=== PATIENT | male | born 1960 | race Caucasian/White ===

== ENCOUNTER 2017-07-29 06:26 | Emergency (ER) | payer MEDICAID, SELFPAY ==
[~2017-07-29] VITALS: Ht 185.4 cm; Wt 99.0 kg
[2017-07-29 08:44] VITALS: BP 145/109
== END 2017-07-29 08:46 | disposition home or self-care (01) ==
LOC: ED 06:47
DX: S83.014A Lateral dislocation of right patella, initial encounter (principal); I10 Essential (primary) hypertension; X50.1XXA Overexertion from prolonged static or awkward postures, initial encounter; Y93.01 Activity, walking, marching and hiking; Y92.89 Other specified places as the place of occurrence of the external cause; Y99.8 Other external cause status; Z72.89 Other problems related to lifestyle
CPT/HCPCS: 29505; 99284

== ENCOUNTER 2021-02-06 01:29 | Emergency (ER) | payer MEDICAID ==
[~2021-02-06] VITALS: Ht 185.4 cm; Wt 138.2 kg
--- NOTE | 2021-02-06 01:50 | NUR ---
PT C/O OF SOB SINCE 3 DAYS AGO AND HAS CHEST PRESSURE AND TIGHTNESS. PT STATES HE HAS PAIN IN BACK UNDER HIS RIGHT SHOULDER BLADE. PT STATES PAIN RADIATES TO RIGHT ARM AND ELBOW PT REPORTS GOTTEN WORSE SINCE SMOKE. ATTACHED TO CARD/SP02/BP MONITORS. HR ELEVATED. BED IN LOW, RAILS ENGAGED, CALL LIGHT ON LAP.
[2021-02-06] MEDS ORDERED: ALBUTEROL/IPRATROPIUM 2.5MG/0.5MG, 3 ML NEB ONE (02:30)
[2021-02-06 02:45] LABS: BASOPHILS % (AUTO) 1 % (0-1); EOSINOPHILS % (AUTO) 1 % (1-7); LYMPHOCYTES % (AUTO) 24 % (22-44); MEAN CORPUSCULAR HGB CONC 34.7 g/dL (33.2-36.2); MEAN PLATELET VOLUME 7.7 fL (7.4-10.4); MONOCYTES % (AUTO) 10 % (2-9); NEUTROPHILS % (AUTO) 64 % (42-75); PLATELET COUNT 252 x10^3/uL (130-400); RED BLOOD COUNT 5.48 x10^6/uL (4.38-5.82); RED CELL DISTRIBUTION WIDTH 14.7 % (9.4-14.8)
[2021-02-06 02:53] LABS: ALANINE AMINOTRANSFERASE 43 U/L (12-78); ANION GAP 8 mmol/L (5-15); CALCIUM 8.8 mg/dL (8.5-10.1); CHLORIDE 108 mmol/L (98-107)
[2021-02-06 02:58] LABS: ALKALINE PHOSPHATASE 96 U/L (45-117); BILIRUBIN,TOTAL 0.4 mg/dL (0.2-1.0); CREATININE 1.42 mg/dL (0.7-1.3); TOTAL PROTEIN 7.2 g/dL (6.4-8.2); TROPONIN I < 0.015 ng/mL (0.000-0.045)
[2021-02-06] MEDS ORDERED: ALBUTEROL/IPRATROPIUM 2.5MG/0.5MG, 3 ML ONE (03:06)
--- NOTE | 2021-02-06 03:13 | NUR ---
PT CURRENTLY TAKING [place]
[2021-02-06 04:14] VITALS: BP 164/115
--- NOTE | 2021-02-06 04:47 | NUR ---
Patient/Caregiver given discharge instructions and they have confirmed that they understand the instructions. Patient ambulatory with steady gait. NAD, all questions answered appropriately, denies additional needs at this time. No personal belongings left in room after discharge.
== END 2021-02-06 04:48 | disposition home or self-care (01) ==
LOC: ED 02:00
DX: S29.012A Strain of muscle and tendon of back wall of thorax, initial encounter (principal); J44.1 Chronic obstructive pulmonary disease with (acute) exacerbation; Z20.822 Contact with and (suspected) exposure to COVID-19; R07.89 Other chest pain; R00.0 Tachycardia, unspecified; I10 Essential (primary) hypertension; F17.210 Nicotine dependence, cigarettes, uncomplicated; X58.XXXA Exposure to other specified factors, initial encounter; Y93.89 Activity, other specified; Y92.89 Other specified places as the place of occurrence of the external cause; Y99.8 Other external cause status
CPT/HCPCS: 36415; 71045; 80053; 82962; 83880; 84484; 85025; 85379; 93005; 94640; 99285; 99406; J7512; U0003; U0005